=== PATIENT | female | born 1980 | race Two or more races ===

== ENCOUNTER 2018-10-03 02:05 | Emergency (ER) | payer SELFPAY ==
[~2018-10-03] VITALS: Ht 170.2 cm; Wt 63.5 kg
[2018-10-03] MEDS ORDERED: ALBUTEROL SULF 2.5 MG/0.5ML(0.5%) NEB SOLN NEB STA (02:13)
[2018-10-03] MEDS ORDERED: IPRATROPIUM BROM 0.5 MG/2.5ML INH SOL NEB ONE ×2 (02:15→02:45)
[2018-10-03 02:27] LABS: Eosinophils # (auto) 0.8 uL
[2018-10-03 02:29] LABS: Basophils # (auto) 0.1 uL; Basophils % (auto) 1.1 % (0.0-2.0); Eosinophils % (auto) 7.4 % (0.0-7.0); Hematocrit 41.4 % (36.0-46.0); Hemoglobin 14.3 g/dL (12.2-16.2); Lymphocytes # (auto) 2.8 uL; Lymphocytes % (auto) 27.5 % (10.0-50.0); Mean Corpuscular Hemoglobin 31.9 pg (28.0-32.0); Mean Corpuscular Hgb Conc. 34.5 g/dL (32.0-36.0); Mean Corpuscular Volume 92.5 fL (80.0-100.0); Monocytes % (auto) 9.6 % (0.0-12.0); Neutrophils # (auto) 5.6 uL; Neutrophils % (auto) 54.4 % (37.0-80.0); Red Blood Cells 4.48 10^6/uL (4.0-5.20); Red Cell Distribution Width 12.8 % (11.8-14.3); White Blood Cell 10.3 10^3/uL (4.4-10.8)
[2018-10-03] MEDS ORDERED: SODIUM CHLORIDE 0.9% 1,000 ML IV ONE (02:45)
[2018-10-03] MEDS ORDERED: methylPREDNISolone SOD SUCC 125 MG/2 ML VL IV ONE (02:45)
[2018-10-03] MEDS ORDERED: TERBUTALINE SULFATE 1 MG/ML 1ML VIAL SC ONE (02:45)
[2018-10-03] MEDS ORDERED: ALBUTEROL SULF 2.5 MG/0.5ML(0.5%) NEB SOLN NEB ONE (02:45)
[2018-10-03 02:51] LABS: Albumin 3.8 g/dL (3.4-5.0); BUN/Creatinine Ratio 10.2; Potassium 4.2 mmol/L (3.5-5.1)
[2018-10-03 02:53] LABS: Bilirubin, Total 0.2 mg/dL (0.2-1.0); Total Protein 8.5 g/dL (6.4-8.2)
[2018-10-03 03:27] LABS: Platelet Count (auto) 579 10^3/uL (140-450)
[2018-10-03 03:57] VITALS: BP 123/72
== END 2018-10-03 04:33 | disposition home or self-care (01) ==
LOC: ER 02:10
DX: J45.901 Unspecified asthma with (acute) exacerbation (principal)
CPT/HCPCS: 36415; 71045; 80053; 85025; 94640; 96372; 96374; 99284; J2930; J3105; J7611; J7644

== ENCOUNTER 2018-11-15 17:10 | Emergency (ER) | payer SELFPAY ==
[~2018-11-15] VITALS: Ht 170.2 cm; Wt 61.2 kg
[2018-11-15] MEDS ORDERED: IPRATROPIUM BROM 0.5 MG/2.5ML INH SOL NEB ONE (17:15)
[2018-11-15] MEDS ORDERED: ALBUTEROL SULF 2.5 MG/0.5ML(0.5%) NEB SOLN NEB ONE (17:15)
[2018-11-15] MEDS ORDERED: EPINEPHrine HCL 0.5 ML NEB NEB ONE (18:45)
[2018-11-15] MEDS ORDERED: DexAMETHasone SOD PHOS 10MG/1ML VIAL INJ IM ONE (18:45)
[2018-11-15 19:30] VITALS: BP 133/76
== END 2018-11-15 19:37 | disposition home or self-care (01) ==
LOC: ER 17:10
DX: J45.909 Unspecified asthma, uncomplicated (principal)
CPT/HCPCS: 94640; 96372; 99284; J1100; J7611; J7644